=== PATIENT | male | born 1985 | race Caucasian/White ===

== ENCOUNTER 2020-10-21 15:16 | Emergency (ER) | payer OTHER, SELFPAY ==
[2020-10-21 15:31] VITALS: BP 100/61; PULSE 78; RESP 16; TEMP 37.2; O2SAT 98; BMI 21.2
--- NOTE | 2020-10-21 16:09 | ED.GENADULT ---
HPI - General Adult General Chief complaint: General Medical Stated complaint: Medication Refill Time Seen by Provider: 10/21/20 16:09 Source: patient Mode of arrival: ambulatory History of Present Illness HPI narrative: History of anxiety presenting requesting refill for his Paxil, Remeron and prazosin has new primary care doctor appointment on November 22. He offers no complaints. Uses [facility] Onset (ago): minute(s) Treatments prior to arrival: none Related Data Previous Rx's Medication Instructions Recorded mirtazapine [Remeron] 30 mg PO DAILY 30 Days #30 tab 10/21/20 paroxetine HCl [Paxil] 30 mg PO BID 30 Days #60 tab 10/21/20 prazosin 5 mg PO QPM 30 Days #30 cap 10/21/20 Allergies Allergy/AdvReac Type Severity Reaction Status Date / Time acetaminophen [From TYLENOL] Allergy Severe CHEST Verified 10/21/20 15:37 PAIN, CHEST TIGHTNESS, CAN'T BREATHE Review of Systems Review of Systems: Constitutional: No Weight loss, No Fever, No Chills, No Night Sweats, No Fatigue, No Malaise ENT/Mouth: No Hearing loss, No Ear Pain, No Nasal Congestion, No Sinus Pain, No Hoarseness, No sore throat, No Rhinorrhea, No Swallowing Difficulty Eyes: No Eye Pain, No Swelling, No Redness, No Foreign Body, No Discharge, No Vision Changes Cardiovascular: No Chest Pain, No SOB, No Dyspnea on Exertion, No Orthopnea, No Edema, No Palpitations Respiratory: No Cough, No Sputum, No Wheezing, No Smoke Exposure, No Dyspnea Gastrointestinal: No Nausea, No Vomiting, No Diarrhea, No Constipation, No abdominal Pain, No Hematochezia, No Melena Genitourinary: no irregular bleeding, No Dysuria, No Urinary Frequency, No Hematuria, No Urinary Incontinence, No Urgency, No Flank Pain, No Urinary Flow Changes, No Hesitancy Musculoskeletal: No joint pain, No Myalgias, No Joint Swelling Skin: No Skin Lesions, No rash Neuro: No Weakness, No Numbness, No Paresthesias, No Loss of Consciousness, No Dizziness, No Headache Psych: No Anxiety/Panic, No Depression, No SI/HI/AH/VH, No Social Issues Heme/Lymph: No Bruising, No Bleeding,No Lymphadenopathy Endocrine: No Polyuria, No Polydipsia, No Temperature Intolerance Yes all other systems are reviewed and are negative [facility] Past Medical History Medical History Anxiety Depression PTSD (post-traumatic stress disorder) Recovering alcoholic Social History Social History Alcohol intake: former Smoking Status: Current every day smoker Substance Use Type Other:: SUBLOCADE Any prior treatment program specific to substance use: Yes Advance Directives: No Advance Directives Information Provided: Yes Physical Exam Vital Signs: Vital Signs: Last Vital Signs Temp 98.9 F 10/21/20 15:31 Pulse 78 10/21/20 15:31 Resp 16 10/21/20 15:31 BP 100/61 10/21/20 15:31 Pulse Ox 98 10/21/20 15:31 Body Mass Index 21.2 Reviewed Const: General: cooperative and healthy appearing; No acute distress or intoxicated appearing Nutritional Appearance: average body habitus Orientation/consciousness: patient oriented x3 HENMT: Head: Yes normal to inspection Ears: hearing grossly normal bilaterally Eyes: General: appearance normal, both eyes and all related structures Visual Mccormick: normal visual mccormick by confrontation Neck: Neck: Yes normal visual inspection and No tender Thyroid: Thyroid normal Chest: Chest palpation & inspection: normal inspection of the chest Resp: Effort & Inspection: normal respiratory effort Cardio: Jugular venous distension: no JVD GI: Inspection: Yes normal to inspection Percussion: Yes normal to percussion Auscultation: normal bowel sounds : General: Yes no CVA tenderness Back/Spine/Pelvis: Back: no CVA tenderness Skin: General skin exam: no rashes or lesions noted Neuro: General: patient oriented x3 Extrem: General: Yes normal to inspection Discharge Plan Discharge Clinical Impression: Anxiety, Medication refill Patient Disposition: Home, Self-Care Instructions: Medicine Refill (ED) Prescriptions: New paroxetine HCl [Paxil] 30 mg tablet 30 mg PO BID 30 Days Qty: 60 RF: 0 mirtazapine [Remeron] 30 mg tablet 30 mg PO DAILY 30 Days Qty: 30 RF: 0 prazosin 5 mg capsule 5 mg PO QPM 30 Days Qty: 30 RF: 0 Referrals: Urmila Murcia MD [Primary Care Provider] - 1 week
== END 2020-10-21 16:50 | disposition home or self-care (01) ==
PROVIDERS: Emergency Provider Emergency Medicine; PCP Pediatrics
DX: F41.1 Generalized anxiety disorder (principal); F43.0 Acute stress reaction; Z76.0 Encounter for issue of repeat prescription; Z79.899 Other long term (current) drug therapy; F17.200 Nicotine dependence, unspecified, uncomplicated; Z71.6 Tobacco abuse counseling
CPT/HCPCS: 99283; 99284

== ENCOUNTER 2023-01-29 12:10 | Emergency (ER) | payer OTHER, SELFPAY ==
[2023-01-29 12:29] VITALS: BP 122/80; PULSE 63; RESP 20; TEMP 37; O2SAT 97; BMI 22.8
--- NOTE | 2023-01-29 12:32 | ECG_ITS ---
Test Reason : hi heart rate Blood Pressure : / mmHG Vent. Rate : 063 BPM Atrial Rate : 063 BPM P-R Int : 158 ms QRS Dur : 094 ms QT Int : 404 ms P-R-T Axes : 070 064 069 degrees QTc Int : 413 ms Normal sinus rhythm Normal ECG When compared with ECG of 04-FEB-2012 04:13, Premature atrial complexes are no longer Present Referred By: Brannon Marie Electronically Signed By:JOSE MARIE MD
--- NOTE | 2023-01-29 12:33 | ED.GENADULT ---
HPI - General Adult General Chief complaint: Arrhythmia/Palpitations <Brannon Marie - Last Filed: 01/29/23 12:34> Stated complaint: Rapid Heartrate <Brannon Marie - Last Filed: 01/29/23 12:34> Time Seen by Provider: 01/29/23 16:24 <Brannon Marie - Last Filed: 01/29/23 12:34> Source: patient <Tari Dumont NP - Last Filed: 01/30/23 01:39> Mode of arrival: ambulatory <Tari Dumont NP - Last Filed: 01/30/23 01:39> Limitations: no limitations <Tari Dumont NP - Last Filed: 01/30/23 01:39> History of Present Illness HPI narrative: 37-year-old male presents for intermittent episodes of palpitations with diaphoresis, dizziness and nausea over the past 2 months. States that his Apple watch tells him that his heart rate is in the 160s when this happens to him. This happened sporadically, and not brought on by exertion. He does report marijuana use, but does not feel that these episodes are associated with his recreational activities. <Tari Dumont NP - Last Filed: 01/30/23 01:39> Onset (ago): month(s) (2) <Tari Dumont NP - Last Filed: 01/30/23 01:39> Radiation: non-radiation <Tari Dumont NP - Last Filed: 01/30/23 01:39> Exacerbating factors: none <Tari Dumont NP - Last Filed: 01/30/23 01:39> Associated symptoms: denies other symptoms <Tari Dumont NP - Last Filed: 01/30/23 01:39> Treatments prior to arrival: none <Tari Dumont NP - Last Filed: 01/30/23 01:39> Related Data Home medications: Previous Rx's Medication Instructions Recorded mirtazapine 30 mg tablet (Remeron) 30 mg PO DAILY 30 days #30 tabs 10/21/20 paroxetine HCl 30 mg tablet (Paxil) 30 mg PO BID 30 days #60 tabs 10/21/20 prazosin 5 mg capsule 5 mg PO QPM 30 days #30 caps 10/21/20 nicotine 7 mg/24 hr daily 1 patch transdermal Q24H #14 ea 01/29/23 transdermal patch <Brannon Marie - Last Filed: 01/29/23 12:34> Allergies/adverse reactions: Allergies Allergy/AdvReac Type Severity Reaction Status Date / Time acetaminophen [From TYLENOL] Allergy Severe CHEST Verified 10/21/20 15:37 PAIN, CHEST TIGHTNESS, CAN'T BREATHE <Brannon Marie - Last Filed: 01/29/23 12:34> Review of Systems Review of Systems: Constitutional: No Fever, No Chills Cardiovascular: Positive palpitations Respiratory: No Cough, No Dyspnea Gastrointestinal: No Nausea, No Vomiting, No Diarrhea, No abdominal Pain Genitourinary: No Dysuria, No Hematuria Musculoskeletal: No joint pain, No Myalgias, No Joint Swelling Skin: No Skin lacerations, No rash Neuro: No Weakness, positive intermittent Dizziness, No Headache Psych: No Anxiety/Panic, No Depression Heme/Lymph: no easy bruising, no Lymphadenopathy Endocrine: No Polyuria, No Polydipsia <Tari Dumont NP - Last Filed: 01/30/23 01:39> Yes all other systems are reviewed and are negative <Tari Dumont NP - Last Filed: 01/30/23 01:39> [facility] Past Medical History Attestation statement: The following information was validated with the patient. <Tari Dumont NP - Last Filed: 01/30/23 01:39> Source: old records reviewed <Tari Dumont NP - Last Filed: 01/30/23 01:39> Medical History: Medical History Anxiety Depression PTSD (post-traumatic stress disorder) Recovering alcoholic <Brannon Marie - Last Filed: 01/29/23 12:34> Social History Social History: Social History Alcohol intake: former Advance Directives: No Advance Directives Information Provided: No <Brannon Marie - Last Filed: 01/29/23 12:34> Physical Exam ED Vital Signs: Vital Signs - 24 hr 01/29/23 12:29 Temperature 98.6 F Pulse Rate 63 Respiratory Rate 20 Blood Pressure 122/80 Pulse Oximetry 97 Oxygen Delivery Method Room Air BMI result Body Mass Index 22.8 <Brannon Marie - Last Filed: 01/29/23 12:34> Vital Signs - 24 hr 01/29/23 12:29 Temperature 98.6 F Pulse Rate 63 Respiratory Rate 20 Blood Pressure 122/80 Pulse Oximetry 97 Oxygen Delivery Method Room Air BMI result Body Mass Index 22.8 <Tari Dumont NP - Last Filed: 01/30/23 01:39> Appearance: Alert. Oriented X3. No acute distress. Eyes: Pupils equal, round and reactive to light. Neck: Normal inspection. Neck supple. CVS: Normal heart rate and rhythm. Pulses normal. Respiratory: No respiratory distress. Breath sounds normal. Skin: Skin warm and dry. Normal skin color. Extremities: Gait balance and coordinated. Neuro: No motor deficit. No sensory deficit. Cranial nerves 2-12 intact. <Tari Dumont NP - Last Filed: 01/30/23 01:39> Course Course Course Narrative: RME- 37-year-old male presents for evaluation of palpitations. He reports that for about 2 months he has felt his heart rate ?occasionally go up to over 160. ? He states that he can check number because he has a athletic monitor on his watch. He states that he experiences these episodes a few times per day. Patient denies any abuse but does smoke marijuana. He denies any chest pain Plan for EKG, labs, drug screen <Brannon Marie - Last Filed: 01/29/23 12:34> RME- 37-year-old male presents for evaluation of palpitations. He reports that for about 2 months he has felt his heart rate ?occasionally go up to over 160. ? He states that he can check number because he has a athletic monitor on his watch. He states that he experiences these episodes a few times per day. Patient denies any abuse but does smoke marijuana. He denies any chest pain Plan for EKG, labs, drug screen 37-year-old male presents for intermittent episodes of tachycardia as high as 160 associated with diaphoresis dizziness and nausea. He does not report any precipitating factors to these events, does not feel that marijuana or alcohol or associated. These episodes do not happen on exertion, and resolve on their own within a few minutes. He does vape, does not use any other recreational drugs other than marijuana, and does not drink caffeine or energy drinks. He does not have any history of congenital heart disease, and does not take any medications. He does not report chest pain or pressure, abdominal pain, abdominal distention, weight loss, changes in vision, headaches or fatigue. Patient's labs were drawn while he was in the emergency department waiting room, all of which were negative for acute findings. EKG shows normal sinus rhythm without ST elevation or depression. Troponins are negative. Patient has a had a negative workup, and does not currently have symptoms at this time. That being said, I feel that patient's consent presentations are concerning, and that he should follow-up with his primary care physician and/or aluminum pourer for Holter monitoring. He does not have a primary care physician at this time, and is in a waiting transition He has a appointment a few months out. I did strongly encourage him to quit vaping, to have no caffeine or alcohol intake, and to keep a documentation of how many times this happens, his heart rate, and what he is doing. I have referred him to Dr. Montes, but I am not sure as he has not established with primary care that this will be effective. He does not have any family history of sudden cardiac , or family history of arrhythmias. Patient will be discharged. Patient verbalized understanding of and agrees plan of care discharge home. Verbalized understanding of signs and symptoms indicating need for emergent intervention. <Tari Dumont NP - Last Filed: 01/30/23 01:39> Medical Decision Making Differential Diagnosis Differential Diagnoses: The differential diagnosis associated with the presentation includes <Tari Dumont NP - Last Filed: 01/30/23 01:39> Arrhythmia <Tari Dumont NP - Last Filed: 01/30/23 01:39> Lab Data MDM Lab Attestation statement: I reviewed the patient's lab results. <Tari Dumont NP - Last Filed: 01/30/23 01:39> Result Diagrams: 01/29/23 12:46 01/29/23 12:46 <Brannon Marie - Last Filed: 01/29/23 12:34> Labs: Lab Results 01/29/23 01/29/23 01/29/23 Range/Units 12:46 12:46 12:46 WBC 4.1 L (4.8-10.8) X10*3/uL RBC 4.85 (4.60-5.80) X10*6/uL Hgb 13.1 L (14.0-18.0) g/dl Hct 41.2 L (42.0-52.0) % MCV 84.9 (80.0-98.0) fL MCH 27.0 (27.0-33.0) pg MCHC 31.8 (31.0-36.0) g/dl RDW 13.7 (11.0-16.0) % Plt Count 302 (160-400) X10*3/uL MPV 8.9 L (9.4-12.4) fL Immature Gran % (Auto) 0.0 (0.0-0.4) % Neut % (Auto) 49.1 (45-73) % Lymph % (Auto) 35.3 (20-40) % Glascock % (Auto) 11.0 (2-11) % Eos % (Auto) 3.4 (0-4) % Baso % (Auto) 1.2 (0-2) % Lymph # (Auto) 1.4 (1.2-4.9) X10*3/uL Glascock # (Auto) 0.5 (0.1-1.2) X10*3/uL Eos # (Auto) 0.1 (0.0-0.4) X10*3/uL Baso # (Auto) 0.1 (0.0-0.2) X10*3/uL Abs Immat Gran (auto) 0.00 (0.00-0.03) X10*3/uL Absolute Neuts (auto) 2.0 (2.0-8.3) x10*3/uL Absolute Nucleated RBC 0.000 (0.0-0.012) X10*3/uL Nucleated RBC % (auto) 0.0 (0.0-0.2) /100WBC Sodium 140 (135-145) mmol/L Potassium 4.0 (3.3-5.1) mmol/L Chloride 105 (96-108) mmol/L Carbon Dioxide 28 (22-29) mmol/L Anion Gap 11 L (12-20) BUN 14 (9-16) mg/dL Creatinine 0.88 (0.5-1.4) mg/dL Estim Creat Clear Calc 108.4 Estimated GFR > 60 Random Glucose 117 H (60-115) mg/dL Calcium 8.8 (8.4-10.2) mg/dL Magnesium 2.0 (1.6-2.6) mg/dL Total Bilirubin 0.7 (0.0-1.0) mg/dL AST 29 (5-37) U/L ALT 29 (0-40) U/L Alkaline Phosphatase 47 (39-117) U/L Troponin I High Sens < 3.5 (<3.5-35.0) ng/L Total Protein 7.0 (6.5-8.0) g/dL Albumin 4.5 (3.5-5.0) g/dL Urine Opiates Screen (Not Detect) Urine Fentanyl Screen (Not Detect) Ur Barbiturates Screen (Not Detect) Ur Phencyclidine Scrn (Not Detect) Ur Amphetamines Screen (Not Detect) U Benzodiazepines Scrn (Not Detect) Urine Cocaine Screen (Not Detect) U Marijuana (THC) Screen (Not Detect) 01/29/23 Range/Units 12:46 WBC (4.8-10.8) X10*3/uL RBC (4.60-5.80) X10*6/uL Hgb (14.0-18.0) g/dl Hct (42.0-52.0) % MCV (80.0-98.0) fL MCH (27.0-33.0) pg MCHC (31.0-36.0) g/dl RDW (11.0-16.0) % Plt Count (160-400) X10*3/uL MPV (9.4-12.4) fL Immature Gran % (Auto) (0.0-0.4) % Neut % (Auto) (45-73) % Lymph % (Auto) (20-40) % Glascock % (Auto) (2-11) % Eos % (Auto) (0-4) % Baso % (Auto) (0-2) % Lymph # (Auto) (1.2-4.9) X10*3/uL Glascock # (Auto) (0.1-1.2) X10*3/uL Eos # (Auto) (0.0-0.4) X10*3/uL Baso # (Auto) (0.0-0.2) X10*3/uL Abs Immat Gran (auto) (0.00-0.03) X10*3/uL Absolute Neuts (auto) (2.0-8.3) x10*3/uL Absolute Nucleated RBC (0.0-0.012) X10*3/uL Nucleated RBC % (auto) (0.0-0.2) /100WBC Sodium (135-145) mmol/L Potassium (3.3-5.1) mmol/L Chloride (96-108) mmol/L Carbon Dioxide (22-29) mmol/L Anion Gap (12-20) BUN (9-16) mg/dL Creatinine (0.5-1.4) mg/dL Estim Creat Clear Calc Estimated GFR Random Glucose (60-115) mg/dL Calcium (8.4-10.2) mg/dL Magnesium (1.6-2.6) mg/dL Total Bilirubin (0.0-1.0) mg/dL AST (5-37) U/L ALT (0-40) U/L Alkaline Phosphatase (39-117) U/L Troponin I High Sens (<3.5-35.0) ng/L Total Protein (6.5-8.0) g/dL Albumin (3.5-5.0) g/dL Urine Opiates Screen Not Detected (Not Detect) Urine Fentanyl Screen Not Detected (Not Detect) Ur Barbiturates Screen Not Detected (Not Detect) Ur Phencyclidine Scrn Not Detected (Not Detect) Ur Amphetamines Screen Not Detected (Not Detect) U Benzodiazepines Scrn Not Detected (Not Detect) Urine Cocaine Screen Not Detected (Not Detect) U Marijuana (THC) Screen POSITIVE H (Not Detect) <Brannon Marie - Last Filed: 01/29/23 12:34> Lab Results 01/29/23 01/29/23 01/29/23 Range/Units 12:46 12:46 12:46 WBC 4.1 L (4.8-10.8) X10*3/uL RBC 4.85 (4.60-5.80) X10*6/uL Hgb 13.1 L (14.0-18.0) g/dl Hct 41.2 L (42.0-52.0) % MCV 84.9 (80.0-98.0) fL MCH 27.0 (27.0-33.0) pg MCHC 31.8 (31.0-36.0) g/dl RDW 13.7 (11.0-16.0) % Plt Count 302 (160-400) X10*3/uL MPV 8.9 L (9.4-12.4) fL Immature Gran % (Auto) 0.0 (0.0-0.4) % Neut % (Auto) 49.1 (45-73) % Lymph % (Auto) 35.3 (20-40) % Glascock % (Auto) 11.0 (2-11) % Eos % (Auto) 3.4 (0-4) % Baso % (Auto) 1.2 (0-2) % Lymph # (Auto) 1.4 (1.2-4.9) X10*3/uL Glascock # (Auto) 0.5 (0.1-1.2) X10*3/uL Eos # (Auto) 0.1 (0.0-0.4) X10*3/uL Baso # (Auto) 0.1 (0.0-0.2) X10*3/uL Abs Immat Gran (auto) 0.00 (0.00-0.03) X10*3/uL Absolute Neuts (auto) 2.0 (2.0-8.3) x10*3/uL Absolute Nucleated RBC 0.000 (0.0-0.012) X10*3/uL Nucleated RBC % (auto) 0.0 (0.0-0.2) /100WBC Sodium 140 (135-145) mmol/L Potassium 4.0 (3.3-5.1) mmol/L Chloride 105 (96-108) mmol/L Carbon Dioxide 28 (22-29) mmol/L Anion Gap 11 L (12-20) BUN 14 (9-16) mg/dL Creatinine 0.88 (0.5-1.4) mg/dL Estim Creat Clear Calc 108.4 Estimated GFR > 60 Random Glucose 117 H (60-115) mg/dL Calcium 8.8 (8.4-10.2) mg/dL Magnesium 2.0 (1.6-2.6) mg/dL Total Bilirubin 0.7 (0.0-1.0) mg/dL AST 29 (5-37) U/L ALT 29 (0-40) U/L Alkaline Phosphatase 47 (39-117) U/L Troponin I High Sens < 3.5 (<3.5-35.0) ng/L Total Protein 7.0 (6.5-8.0) g/dL Albumin 4.5 (3.5-5.0) g/dL Urine Opiates Screen (Not Detect) Urine Fentanyl Screen (Not Detect) Ur Barbiturates Screen (Not Detect) Ur Phencyclidine Scrn (Not Detect) Ur Amphetamines Screen (Not Detect) U Benzodiazepines Scrn (Not Detect) Urine Cocaine Screen (Not Detect) U Marijuana (THC) Screen (Not Detect) 01/29/23 Range/Units 12:46 WBC (4.8-10.8) X10*3/uL RBC (4.60-5.80) X10*6/uL Hgb (14.0-18.0) g/dl Hct (42.0-52.0) % MCV (80.0-98.0) fL MCH (27.0-33.0) pg MCHC (31.0-36.0) g/dl RDW (11.0-16.0) % Plt Count (160-400) X10*3/uL MPV (9.4-12.4) fL Immature Gran % (Auto) (0.0-0.4) % Neut % (Auto) (45-73) % Lymph % (Auto) (20-40) % Glascock % (Auto) (2-11) % Eos % (Auto) (0-4) % Baso % (Auto) (0-2) % Lymph # (Auto) (1.2-4.9) X10*3/uL Glascock # (Auto) (0.1-1.2) X10*3/uL Eos # (Auto) (0.0-0.4) X10*3/uL Baso # (Auto) (0.0-0.2) X10*3/uL Abs Immat Gran (auto) (0.00-0.03) X10*3/uL Absolute Neuts (auto) (2.0-8.3) x10*3/uL Absolute Nucleated RBC (0.0-0.012) X10*3/uL Nucleated RBC % (auto) (0.0-0.2) /100WBC Sodium (135-145) mmol/L Potassium (3.3-5.1) mmol/L Chloride (96-108) mmol/L Carbon Dioxide (22-29) mmol/L Anion Gap (12-20) BUN (9-16) mg/dL Creatinine (0.5-1.4) mg/dL Estim Creat Clear Calc Estimated GFR Random Glucose (60-115) mg/dL Calcium (8.4-10.2) mg/dL Magnesium (1.6-2.6) mg/dL Total Bilirubin (0.0-1.0) mg/dL AST (5-37) U/L ALT (0-40) U/L Alkaline Phosphatase (39-117) U/L Troponin I High Sens (<3.5-35.0) ng/L Total Protein (6.5-8.0) g/dL Albumin (3.5-5.0) g/dL Urine Opiates Screen Not Detected (Not Detect) Urine Fentanyl Screen Not Detected (Not Detect) Ur Barbiturates Screen Not Detected (Not Detect) Ur Phencyclidine Scrn Not Detected (Not Detect) Ur Amphetamines Screen Not Detected (Not Detect) U Benzodiazepines Scrn Not Detected (Not Detect) Urine Cocaine Screen Not Detected (Not Detect) U Marijuana (THC) Screen POSITIVE H (Not Detect) <Tari Dumont NP - Last Filed: 01/30/23 01:39> Independent Interpretation I performed an independent interpretation of an: EKG <Tari Dumont NP - Last Filed: 01/30/23 01:39> Interpretation: Normal sinus rhythm Normal ECG When compared with ECG of 04-FEB-2012 04:13, Premature atrial complexes are no longer Present Vent. rate 63 BPM OR interval 158 ms QRS duration 94 ms QT/QTc 404/413 ms P-R-T axes 70 64 69 29-JAN-2023 12:38:20 <PATRICK Morales Last Filed: 01/30/23 01:39> External Record Review External record reviewed: Outpatient record and Prior outpatient labs <Tari Dumont NP - Last Filed: 01/30/23 01:39> Discharge Plan Discharge Clinical Impression: Palpitations <Brannon Cynthia - Last Filed: 01/29/23 12:34> Patient Disposition: Home, Self-Care <Brannon Cynthia - Last Filed: 01/29/23 12:34> Instructions: Heart Palpitations (ED) <Brannon Marie - Last Filed: 01/29/23 12:34> Additional Instructions: You were evaluated for intermittent palpitations as high as 160 based on your Apple watch, with diaphoresis (sweating). While you were in the emergency department we did not capture an elevated heart rate on EKG. Your cardiac enzymes were negative. Your EKG showed normal sinus rhythm at heart rate of 63. Please follow-up with primary care physician. It is strongly recommended that you have a athletic monitor. Please stop vaping. I prescribed nicotine patches for you. You may be able to establish athletic monitor with your primary care. It may take several months for your Primary Care to establish you, as you are a new patent. You could try to get an appointment with a aluminum pourer. I have referred you to a aluminum pourer. Please follow with Dr. Montes. If symptoms persist please present to the emergency department immediately for evaluation. Drink plenty of fluids. Thank you for choosing this emergency department for evaluation. Please follow-up with primary care physician as needed. Return to the emergency department for any new, concerning, or worsening symptoms. <Brannon Marie - Last Filed: 01/29/23 12:34> Prescriptions: New nicotine 7 mg/24 hr patch 24 hour 1 patch transdermal Q24H Qty: 14 6RF No Action paroxetine HCl [Paxil] 30 mg tablet 30 mg PO BID 30 Days Qty: 60 0RF mirtazapine [Remeron] 30 mg tablet 30 mg PO DAILY 30 Days Qty: 30 0RF prazosin 5 mg capsule 5 mg PO QPM 30 Days Qty: 30 0RF <Brannon Marie - Last Filed: 01/29/23 12:34> Referrals: Ken Montes MD [Physician] - 2 weeks (Palpitations diaphoresis) <Brannon Marie - Last Filed: 01/29/23 12:34> Interventions: ED Discharge Assessment Last Done: 01/29/23 16:49 <Brannon Marie - Last Filed: 01/29/23 12:34> Discharge Date/Time: 01/29/23 17:33 <Brannon Marie - Last Filed: 01/29/23 12:34>
[2023-01-29 12:53] LABS: MANUAL DIFF FLAG NO
[2023-01-29 12:55] LABS: Basophils Absolute Auto 0.1 X10*3/uL (0.0-0.2); Basophils Percent Auto 1.2 % (0-2); Eosinophils Absolute Auto 0.1 X10*3/uL (0.0-0.4); Eosinophils Percent Auto 3.4 % (0-4); Hematocrit 41.2 % (42.0-52.0); Hemoglobin 13.1 g/dl (14.0-18.0); Lymphocytes Absolute Auto 1.4 X10*3/uL (1.2-4.9); Lymphocytes Percent Auto 35.3 % (20-40); Mean Corpuscular HGB Conc 31.8 g/dl (31.0-36.0); Mean Corpuscular Volume 84.9 fL (80.0-98.0); Mean Platelet Volume 8.9 fL (9.4-12.4); Monocytes Absolute Auto 0.5 X10*3/uL (0.1-1.2); Neutrophils Percent Auto 49.1 % (45-73); Platelet Count 302 X10*3/uL (160-400); Red Blood Count 4.85 X10*6/uL (4.60-5.80); Red Cell Distribution Width 13.7 % (11.0-16.0); White Blood Count 4.1 X10*3/uL (4.8-10.8)
[2023-01-29 13:06] LABS: Amphetamine Screen Urine Not Detected (Not Detect); Barbiturates, Urine Not Detected (Not Detect); Benzodiazepines Screen Urine Not Detected (Not Detect); Cannabinoid Screen Urine POSITIVE (Not Detect); Cocaine Screen Urine Not Detected (Not Detect); Fentanyl, urine Not Detected (Not Detect); Opiate Screen Urine Not Detected (Not Detect); Phencyclidine Screen Urine Not Detected (Not Detect)
[2023-01-29 13:09] LABS: Alanine Aminotransferase 29 U/L (0-40); Albumin Level 4.5 g/dL (3.5-5.0); Alkaline Phosphatase 47 U/L (39-117); Anion Gap 11 (12-20); Aspartate Amino Transferase 29 U/L (5-37); Bilirubin Total 0.7 mg/dL (0.0-1.0); Blood Urea Nitrogen 14 mg/dL (9-16); Calcium 8.8 mg/dL (8.4-10.2); Carbon Dioxide 28 mmol/L (22-29); Chloride 105 mmol/L (96-108); Creatinine Clr Calc Pharmacy 108.4; Estimated Glomerular Filt Rate > 60; Glucose Random 117 mg/dL (60-115); Sodium 140 mmol/L (135-145)
[2023-01-29 13:20] LABS: Troponin-I High Sensitivity < 3.5 ng/L (<3.5-35.0)
== END 2023-01-29 17:33 | disposition home or self-care (01) ==
PROVIDERS: Physician Assistant; Emergency Provider Emergency Medicine
DX: R00.2 Palpitations (principal); R42 Dizziness and giddiness; Z79.899 Other long term (current) drug therapy
CPT/HCPCS: 36415; 80053; 80307; 83735; 84484; 85025; 93005; 99283

== ENCOUNTER 2024-02-24 12:44 | Emergency (ER) | payer OTHER, SELFPAY ==
--- NOTE | ~2024-02-24 | CT_ITS ---
EXAMINATION: CT ABDOMEN AND PELVIS WITHOUT CONTRAST CLINICAL INFORMATION: Abdominal pain and constipation. Rule out obstruction. COMPARISON: Previous CT of the abdomen and pelvis August 2019 and KUB from earlier the same day TECHNIQUE: Multidetector volumetric imaging was performed from the superior aspect of the liver through the pubic symphysis. Sagittal and coronal reformatted images were obtained on the technologist's workstation. This CT examination was performed using dose optimization techniques as appropriate, variously including the following: *Automated exposure control *Adjustment of mA and/or kV according to patient size (this includes techniques or standardized protocols for targeted exams where dose is matched to indication/reason for exam; i.e. extremities or head) *Use of iterative reconstruction technique DLP: 348 mGy-cm FINDINGS: LUNG BASES: The visualized lung bases are unremarkable. LIVER, GALLBLADDER, AND BILIARY TREE: The liver is normal in size, shape, and attenuation. Small stable cyst in the posterior segment of the right lobe of the liver measuring 8 mm. No other focal hepatic lesion or biliary ductal dilatation is present. The gallbladder is unremarkable with no evidence of radiopaque gallstones, gallbladder wall thickening, or obvious pericholecystic inflammatory changes. PANCREAS: Unremarkable. SPLEEN: Unremarkable. ADRENAL GLANDS: Unremarkable. KIDNEYS AND URETERS: The kidneys are normal in size, shape, and attenuation. No hydronephrosis, hydroureter, or calculi seen. No perinephric stranding. BLADDER: Unremarkable. GASTROINTESTINAL TRACT: There is a large amount of stool in the distal colon suggestive of severe constipation/obstipation. There is wall thickening of the distal colon and stranding of the surrounding fat suggestive of stercoral colitis related to chronic constipation. The sigmoid colon is dilated measuring up to 8.5 cm. Findings are similar to August 2019 exam. Normal stomach, and small bowel. Appendix not definitely seen. No ascites or free air. ABDOMINAL WALL: No significant hernia is appreciated. LYMPH NODES: Normal. VASCULAR: Unremarkable. PELVIC VISCERA: Unremarkable. OSSEOUS STRUCTURES: Unremarkable. CT/CT abdomen pelvis wo IV con IMPRESSION: Severe constipation/obstipation. Probable stercoral colitis of the distal colon. Fleischner guidelines were followed.
--- NOTE | ~2024-02-24 | XR_ITS ---
EXAMINATION: XR ABDOMEN KUB CLINICAL INDICATION: Abdominal pain COMPARISON: KUB radiograph from 09/11/2019 TECHNIQUE: AP view of the abdomen. FINDINGS: No dilated loops of bowel visualized suggest obstruction. Mild to moderate fecal loading greatest in the sigmoid colon. Osseous structures are intact. Soft tissues are unremarkable. XR/XR KUB IMPRESSION: 1. No dilated loops of bowel visualized suggest obstruction. 2. Mild to moderate fecal loading greatest in the sigmoid colon.
[2024-02-24 12:58] VITALS: BP 143/85; PULSE 84; RESP 16; TEMP 36.9; O2SAT 98; BMI 20.5
[2024-02-24 13:03] VITALS: BP 156/90; PULSE 103; O2SAT 97
[2024-02-24 13:07] LABS: Glucose, Whole Blood 173 mg/dL (60-115)
--- NOTE | 2024-02-24 13:15 | PC.NURSE ---
c/o cramping abd pain, no bm x 4 weeks, endorses N/V, diaphoretic, changed into hospital attire, resting quietly on stretcher at this time.
[2024-02-24 13:34] LABS: MANUAL DIFF FLAG NO
[2024-02-24 13:40] LABS: Basophils Percent Auto 0.3 % (0-2); Eosinophils Percent Auto 0.2 % (0-4); Hematocrit 40.6 % (42.0-52.0); Hemoglobin 13.6 g/dl (14.0-18.0); Imm Gran Abs Auto 0.04 X10*3/uL (0.00-0.03); Imm Gran Pct Auto 0.3 % (0.0-0.4); Lymphocytes Absolute Auto 0.8 X10*3/uL (1.2-4.9); Lymphocytes Percent Auto 5.6 % (20-40); Mean Corpuscular HGB Conc 33.5 g/dl (31.0-36.0); Mean Corpuscular Hemoglobin 28.1 pg (27.0-33.0); Mean Corpuscular Volume 83.9 fL (80.0-98.0); Mean Platelet Volume 9.5 fL (9.4-12.4); Monocytes Absolute Auto 0.7 X10*3/uL (0.1-1.2); Monocytes Percent Auto 5.4 % (2-11); Neutrophils Absolute Auto 12.1 x10*3/uL (2.0-8.3); Neutrophils Percent Auto 88.2 % (45-73); Platelet Count 376 X10*3/uL (160-400); Red Blood Count 4.84 X10*6/uL (4.60-5.80); Red Cell Distribution Width 13.7 % (11.0-16.0); White Blood Count 13.7 X10*3/uL (4.8-10.8)
[2024-02-24 14:01] LABS: Alanine Aminotransferase 57 U/L (0-40); Albumin Level 4.7 g/dL (3.5-5.0); Alkaline Phosphatase 120 U/L (39-117); Anion Gap 12 (12-20); Aspartate Amino Transferase 63 U/L (5-37); Bilirubin Total 0.6 mg/dL (0.0-1.0); Blood Urea Nitrogen 12 mg/dL (9-16); Calcium 9.4 mg/dL (8.4-10.2); Carbon Dioxide 27 mmol/L (22-29); Chloride 105 mmol/L (96-108); Creatinine Clr Calc Pharmacy 86.7; Estimated Glomerular Filt Rate > 60; Glucose Random 138 mg/dL (60-115); Lipase 5 U/L (8-78); Potassium 3.5 mmol/L (3.3-5.1); Sodium 140 mmol/L (135-145); Total Protein 7.9 g/dL (6.5-8.0)
--- NOTE | 2024-02-24 14:28 | ED_ITS ---
HPI - Abdominal Pain General Chief Complaint: Abdominal Pain Stated Complaint: VOMITING Time Seen by Provider: 02/24/24 13:57 Source: patient Mode of arrival: ambulatory Limitations: no limitations History of Present Illness HPI narrative: 38-year-old male with a history of depression , PTSD, chronic constipation, opiate use disorder on Suboxone who presents emergency department for evaluation of constipation. The patient states that he has had difficulty with constipation since he was a child. He states that he moves his bowels infrequently he has not moved his bowels for at least 4 weeks. He states that he has had nausea and vomiting he is concerned that he might have the bowel obstruction. He states that he has been treated multiple times in the past for constipation and he states that enemas do not work. Related Data Previous Rx's Medication Instructions Recorded mirtazapine 30 mg tablet (Remeron) 30 mg PO DAILY 30 days #30 tabs 10/21/20 paroxetine HCl 30 mg tablet (Paxil) 30 mg PO BID 30 days #60 tabs 10/21/20 prazosin 5 mg capsule 5 mg PO QPM 30 days #30 caps 10/21/20 nicotine 7 mg/24 hr daily 1 patch transdermal Q24H #14 ea 01/29/23 transdermal patch bisacodyl 10 mg rectal suppository 10 mg PA DAILY PRN constipation 02/24/24 (Dulcolax (bisacodyl)) #12 ea lactulose 10 gram/15 mL oral 10 g (15 mL) PO BID PRN 02/24/24 solution (Enulose) constipation #473 mL Allergies Allergy/AdvReac Type Severity Reaction Status Date / Time acetaminophen [From TYLENOL] Allergy Severe CHEST Verified 10/21/20 15:37 PAIN, CHEST TIGHTNESS, CAN'T BREATHE Review of Systems Review of Systems Yes all other systems are reviewed and are negative [facility] Past Medical History [facility] Narrative: Social history: He does smoke cigarettes. Denies drug and alcohol use. Patient is on Suboxone. Medical History Anxiety Depression PTSD (post-traumatic stress disorder) Recovering alcoholic Social History Social History Alcohol intake: former Smoked in Last 30 Days: No Substance Use Type: Marijuana Substance Use Frequency: Daily Advance Directives: No Physical Exam ED Vital Signs: Vital Signs - 24 hr 02/24/24 12:58 02/24/24 15:13 02/24/24 15:22 Temperature 98.4 F 98.9 F 97.9 F Pulse Rate 84 80 83 Respiratory Rate 16 16 16 Blood Pressure 143/85 H 121/78 116/83 Pulse Oximetry 98 96 97 Oxygen Delivery Method Room Air Room Air Room Air BMI result Body Mass Index 20.5 Vital signs were normal Exam: General: Awake, alert in no distress Head: Normocephalic, atraumatic EENT: PERRL, Lids normal, sclera normal, conjunctiva normal, nose normal , ears normal, throat without erythema or exudates Neck: Supple, no adenopathy Lung: breath sounds symmetric, no wheezing, rales or rhonchi Chest: symmetric movement, nontender Heart: regular rate and rhythm, normal S1, S2 no murmurs or rubs Abdomen: soft, non-tender, nondistended, normal bowel sounds Back: no vertebral tenderness, no CVAT Extremities: no deformities, moves all extremities symmetrically Neuro: Awake, alert, oriented, normal speech, cranial nerves intact, moves all extremities symmetrically Psych: Pleasant, cooperative Medical Decision Making Medical Decision Making MDM Narrative: 38-year-old male with a history of depression , PTSD, chronic constipation, opiate use disorder on Suboxone who presents emergency department for evaluation of constipation times 4 weeks with associated nausea vomiting. Vital signs did reveal an elevated blood pressure otherwise unremarkable. Physical examination was unremarkable. Differential diagnosis: ?Includes but is not limited to constipation, bowel impaction, bowel obstructions Following evaluation was ordered: CBC, comprehensive metabolic panel, magnesium, urinalysis, lipase, urine drug screen Course: 14:57 My interpretation patient's laboratory evaluation as follows: WBCs elevated 13,700, glucose elevated 138, AST and ALT elevated 63 and 57, alk-phos elevated 120. Lipase was normal. My interpretation patient's two view KUB is constipation with no evidence of bowel obstruction pattern Patient has chronic constipation and I did prescribe lactulose 10 g per 15 mL, 15 mL b.i.d. p.r.n. constipation and Dulcolax suppositories once a day PRN constipation. He was given printed and verbal instructions discharged home 15:34 The nurse went to discharge the patient and the patient states he did not feel well. He became diaphoretic, states that his abdominal pain was worse. When I went to evaluate the patient he was diaphoretic, abdominal exam revealed no significant tenderness, patient's point of care glucose was 90. Given this change, the patient will not be discharged. I ordered CBC, CMP, lactic acid, blood cultures x2, troponin added to previous labs and troponin now, CT scan of the abdomen pelvis with IV contrast. Patient was given Zofran 4 mg IV and normal saline 1 L IV 17:24 My interpretation patient's blood work done at 16:06 hours is as follows: Elevated WBC 01071 unchanged from previous, H&H stable. Glucose elevated 177 AST, ALT and alk-phos were elevated but similar to previous values. CT scan of the abdomen pelvis did not reveal any acute finding except for severe constipation. At this time I do not have a clear cause for the patient's sudden onset of diaphoresis and I did discuss this with the patient. Patient will be discharged home as per previous plan. Admission/Observation Consideration of admission/observation: Escalation of care including admission/observation considered Lab Data MDM Lab Attestation statement: I reviewed the patient's lab results. 02/24/24 16:06 02/24/24 16:06 Labs: Lab Results 02/24/24 02/24/24 02/24/24 Range/Units 13:04 13:24 16:06 WBC 13.7 H 14.0 H (4.8-10.8) X10*3/uL RBC 4.84 4.85 (4.60-5.80) X10*6/uL Hgb 13.6 L 13.5 L (14.0-18.0) g/dl Hct 40.6 L 41.0 L (42.0-52.0) % MCV 83.9 84.5 (80.0-98.0) fL MCH 28.1 27.8 (27.0-33.0) pg MCHC 33.5 32.9 (31.0-36.0) g/dl RDW 13.7 13.7 (11.0-16.0) % Plt Count 376 391 (160-400) X10*3/uL MPV 9.5 9.3 L (9.4-12.4) fL Immature Gran % (Auto) 0.3 0.4 (0.0-0.4) % Neut % (Auto) 88.2 H 90.8 H (45-73) % Lymph % (Auto) 5.6 L 4.6 L (20-40) % [place] % (Auto) 5.4 3.9 (2-11) % Eos % (Auto) 0.2 0.1 (0-4) % Baso % (Auto) 0.3 0.2 (0-2) % Lymph # (Auto) 0.8 L 0.6 L (1.2-4.9) X10*3/uL [place] # (Auto) 0.7 0.6 (0.1-1.2) X10*3/uL Eos # (Auto) 0.0 0.0 (0.0-0.4) X10*3/uL Baso # (Auto) 0.0 0.0 (0.0-0.2) X10*3/uL Abs Immat Gran (auto) 0.04 H 0.06 H (0.00-0.03) X10*3/uL Absolute Neuts (auto) 12.1 H 12.7 H (2.0-8.3) x10*3/uL Absolute Nucleated RBC 0.000 0.000 (0.0-0.012) X10*3/uL Nucleated RBC % (auto) 0.0 0.0 (0.0-0.2) /100WBC Smear Tech's Comments VERIFIED Sodium 140 139 (135-145) mmol/L Potassium 3.5 3.4 (3.3-5.1) mmol/L Chloride 105 104 (96-108) mmol/L Carbon Dioxide 27 24 (22-29) mmol/L Anion Gap 12 14 (12-20) BUN 12 12 (9-16) mg/dL Creatinine 0.98 0.90 (0.5-1.4) mg/dL Estim Creat Clear Calc 86.7 94.4 Estimated GFR > 60 > 60 POC Glucose 173 H (60-115) mg/dL Random Glucose 138 H 117 H (60-115) mg/dL Lactic Acid 1.6 (0.5-2.0) mmol/L Calcium 9.4 D 9.5 (8.4-10.2) mg/dL Magnesium 2.0 (1.6-2.6) mg/dL Total Bilirubin 0.6 0.7 (0.0-1.0) mg/dL AST 63 H 53 H (5-37) U/L ALT 57 H 56 H (0-40) U/L Alkaline Phosphatase 120 H 118 H (39-117) U/L Troponin I High Sens < 2.7 (<3.5-35.0) ng/L Total Protein 7.9 8.1 H (6.5-8.0) g/dL Albumin 4.7 4.9 (3.5-5.0) g/dL Lipase 5 L 5 L (8-78) U/L Influenza Type A (PCR) NEGATIVE (Negative) Influenza Type B (PCR) NEGATIVE (Negative) RSV RNA Qual (PCR) NEGATIVE (Negative) SARS-CoV-2 RNA (RT-PCR) NEGATIVE (Negative) Independent Interpretation I performed an independent interpretation of an: EKG and Plain X-Ray Interpretation: My interpretation of the patient's two view KUB is large stool load with no obstructive pattern. Radiology reading is pending not available My interpretation patient's 12 EKG done at 15:51 hours is as follows: Normal sinus rhythm rate of 87, normal PA interval, QRS duration QTC interval, no ST segment elevation, no ST segment depression, no PACs, no PVCs no significant T- wave abnormalities. Radiology Impression Discussion of test interpretation with radiology: I have reviewed the radiologist's reading. Radiologist Impression: EXAMINATION: CT ABDOMEN AND PELVIS WITHOUT CONTRAST CLINICAL INFORMATION: Abdominal pain and constipation. Rule out obstruction. GASTROINTESTINAL TRACT: There is a large amount of stool in the distal colon suggestive of severe constipation/obstipation. There is wall thickening of the distal colon and stranding of the surrounding fat suggestive of stercoral colitis related to chronic constipation. The sigmoid colon is dilated measuring up to 8.5 cm. Findings are similar to August 2019 exam. Normal stomach, and small bowel. Appendix not definitely seen. No ascites or free air. IMPRESSION: Severe constipation/obstipation. Probable stercoral colitis of the distal colon. Fleischner guidelines were followed. Dictated By: Kary Cm MD Prescription Management I considered prescription management with: Other (Lactulose, Dulcolax) Chronic Conditions Patient?s care impacted by: Other Chronic constipation, opiate use disorder on Suboxone Medications Administered Discontinued Medications Generic Name Dose Route Start Last Admin Trade Name Freq PRN Reason Stop Dose Admin Sodium Chloride 1,000 mls @ 999 mls/hr 02/24/24 15:32 02/24/24 16:12 Ns IV 02/24/24 16:32 999 mls/hr .Q1H1M STA Administration Ondansetron HCl 4 mg 02/24/24 15:32 02/24/24 16:11 Ondansetron Hcl 4 Mg/2 Ml Vial IVPUSH 02/24/24 15:33 4 mg ONCE ONE Administration Discharge Plan Discharge Clinical Impression: Acute constipation, Abdominal pain, Diaphoresis Instructions: Constipation (ED) Additional Instructions: Your blood work was unremarkable. The x-ray of your abdomen is consistent with constipation but there has no evidence of a bowel obstruction at this time. Take lactulose 10 g/15 mL, 15 mL twice a day as needed for constipation Take Dulcolax suppositories 1 suppository per rectum daily as needed for constipation Follow-up with your doctor in 2 days. Please return to the emergency department if your symptoms get worse or if you develop any symptoms that are concerning to you. The CT scan of your abdomen pelvis did not reveal any bowel obstruction but you do have severe constipation as discussed previously Prescriptions: New lactulose [Enulose] 10 gram/15 mL solution 10 g PO BID PRN (Reason: constipation) Qty: 473 0RF bisacodyl [Dulcolax (bisacodyl)] 10 mg suppository 10 mg PA DAILY PRN (Reason: constipation) Qty: 12 0RF No Action paroxetine HCl [Paxil] 30 mg tablet 30 mg PO BID 30 Days Qty: 60 0RF mirtazapine [Remeron] 30 mg tablet 30 mg PO DAILY 30 Days Qty: 30 0RF prazosin 5 mg capsule 5 mg PO QPM 30 Days Qty: 30 0RF nicotine 7 mg/24 hr patch 24 hour 1 patch transdermal Q24H Qty: 14 6RF Interventions: ED Discharge Assessment Last Done: 02/24/24 15:13
[2024-02-24 15:13] VITALS: BP 104/55; PULSE 87; RESP 16; TEMP 37.2; O2SAT 97
[2024-02-24 15:22] VITALS: BP 116/83; PULSE 83; RESP 16; TEMP 36.6; O2SAT 97
--- NOTE | 2024-02-24 15:33 | ECG_ITS ---
Test Reason : diaphoresis/abdominal pain Blood Pressure : / mmHG Vent. Rate : 087 BPM Atrial Rate : 087 BPM P-R Int : 150 ms QRS Dur : 100 ms QT Int : 386 ms P-R-T Axes : 086 071 078 degrees QTc Int : 464 ms Normal sinus rhythm Normal ECG When compared with ECG of 29-JAN-2023 12:38, QT has lengthened Referred By: Sathya Hess Electronically Signed By:Murali Hughes
--- NOTE | 2024-02-24 15:35 | PC.NURSE ---
REVIEWED PT DISCHARGE, PT HAD BEEN AMENABLE TO DC, WELL APPEARING AT THAT TIME. PT GIVEN TIME TO CHANGE OUT OF HOSPITAL ATTIRE. PT BEGAN TO EXPERIENCE ORIGINAL SYMPTOMS, DIAPHORETIC, PALE. BS WNL, NO CHANGE IN VS. MD ALERTED, NEW ORDERS IN TO FURTHER R/O CARDIAC ETIOLOGY.
[2024-02-24] MEDS: ondansetron HCL 4 MG/2 ML VIAL IVPUSH (16:11)
[2024-02-24] MEDS: 0.9 % Sodium Chloride 1,000 ML 999 ML IV (16:12)
[2024-02-24 16:14] LABS: Basophils Percent Auto 0.2 % (0-2); Eosinophils Percent Auto 0.1 % (0-4); Hemoglobin 13.5 g/dl (14.0-18.0); Imm Gran Abs Auto 0.06 X10*3/uL (0.00-0.03); Imm Gran Pct Auto 0.4 % (0.0-0.4); Lymphocytes Absolute Auto 0.6 X10*3/uL (1.2-4.9); Lymphocytes Percent Auto 4.6 % (20-40); Mean Corpuscular HGB Conc 32.9 g/dl (31.0-36.0); Mean Corpuscular Hemoglobin 27.8 pg (27.0-33.0); Mean Corpuscular Volume 84.5 fL (80.0-98.0); Mean Platelet Volume 9.3 fL (9.4-12.4); Monocytes Absolute Auto 0.6 X10*3/uL (0.1-1.2); Monocytes Percent Auto 3.9 % (2-11); Neutrophils Absolute Auto 12.7 x10*3/uL (2.0-8.3); Neutrophils Percent Auto 90.8 % (45-73); Platelet Count 391 X10*3/uL (160-400); Red Blood Count 4.85 X10*6/uL (4.60-5.80); Red Cell Distribution Width 13.7 % (11.0-16.0); SCAN SMEAR FLAG 1
[2024-02-24 16:25] LABS: MANUAL DIFF FLAG SCAN
[2024-02-24 16:27] LABS: Lactic Acid 1.6 mmol/L (0.5-2.0)
[2024-02-24 16:32] LABS: SLIDE REVIEW VERIFIED
[2024-02-24 16:33] LABS: Alanine Aminotransferase 56 U/L (0-40); Albumin Level 4.9 g/dL (3.5-5.0); Alkaline Phosphatase 118 U/L (39-117); Anion Gap 14 (12-20); Aspartate Amino Transferase 53 U/L (5-37); Bilirubin Total 0.7 mg/dL (0.0-1.0); Blood Urea Nitrogen 12 mg/dL (9-16); Calcium 9.5 mg/dL (8.4-10.2); Carbon Dioxide 24 mmol/L (22-29); Chloride 104 mmol/L (96-108); Creatinine Clr Calc Pharmacy 94.4; Estimated Glomerular Filt Rate > 60; Glucose Random 117 mg/dL (60-115); Lipase 5 U/L (8-78); Potassium 3.4 mmol/L (3.3-5.1); Sodium 139 mmol/L (135-145); Total Protein 8.1 g/dL (6.5-8.0)
[2024-02-24 16:41] LABS: Troponin-I High Sensitivity < 2.7 ng/L (<3.5-35.0)
[2024-02-24 17:00] LABS: Influenza A PCR NEGATIVE (Negative); Influenza B PCR NEGATIVE (Negative); Resp Syncy Virus RNA Qual PCR NEGATIVE (Negative); SARS COV2 PCR INHOUSE NEGATIVE (Negative)
[2024-02-25 07:33] LABS: Glucose, Whole Blood 99 mg/dL (60-115)
== END 2024-02-24 17:40 | disposition home or self-care (01) ==
PROVIDERS: Emergency Provider Emergency Medicine Emergency Medical Services
DX: K59.09 Other constipation (principal); R61 Generalized hyperhidrosis; R10.9 Unspecified abdominal pain; F11.90 Opioid use, unspecified, uncomplicated; F32.A Depression, unspecified; Z79.899 Other long term (current) drug therapy; Z03.818 Encounter for observation for suspected exposure to other biological agents ruled out
CPT/HCPCS: 0241U; 36415; 74018; 74176; 80053; 82947; 83605; 83690; 83735; 84484; 85025; 87040; 93005; 96361; 96374; 99284; 99285; J2405

== ENCOUNTER → 2024-02-24 15:33 | Outpatient (BNV) | payer OTHER, SELFPAY | PROVIDERS: Emergency Provider Emergency Medicine Emergency Medical Services; Visit Provider Internal Medicine Cardiovascular Disease | DX: R61 Generalized hyperhidrosis (principal) | CPT/HCPCS: 93010 ==